=== PATIENT | male | born 1970 | race Caucasian/White ===

== ENCOUNTER → 2022-05-15 09:39 | Outpatient (BNVA) | payer OTHER, SELFPAY | PROVIDERS: Visit Provider Orthopaedic Surgery | DX: M17.12 Unilateral primary osteoarthritis, left knee (principal) | CPT/HCPCS: 73560; 73565 ==

== ENCOUNTER 2022-05-23 16:46 | Outpatient (CLI) | payer OTHER, SELFPAY ==
--- NOTE | 2022-05-23 17:00 | CT_ITS ---
WS: [id number] CT LEFT knee, noncontrast HISTORY: pre op planning TECHNIQUE: Protocol for [facility] total knee replacement has been obtained. This includes axial imaging th rough the LEFT hip, LEFT knee and LEFT ankle. DLP: 1031.47 mGy.cm COMPARISON: 05/15/2022 Pelvis: No destructive bone lesions. No significant narrowing of the hip joints. No soft tissue abnor malities. LEFT knee: Mild tricompartment joint space narrowing and osteophytic changes from arthritis. Small wilson prapatellar joint effusion. LEFT ankle: Normal joint spaces and soft tissues. CT/CT knee LT [facility] IMPRESSION: CT imaging provided for [facility] robotic total knee replacement.
== END 2022-05-23 16:47 | disposition home or self-care (01) ==
PROVIDERS: Visit Provider Orthopaedic Surgery
DX: Z01.818 Encounter for other preprocedural examination (principal); M17.12 Unilateral primary osteoarthritis, left knee
CPT/HCPCS: 73700

== ENCOUNTER 2022-06-04 09:08 | Observation (INO) | payer OTHER, SELFPAY ==
[2022-05-25 08:55] VITALS: BMI 36.6
[2022-05-25 09:52] LABS: Anion Gap 13.3 (5-19); Blood Urea Nitrogen 10 mg/dL (6-20); Calcium 9.2 mg/dL (8.5-10.5); Carbon Dioxide 27 mmol/L (22-29); Chloride 104 mmol/L (98-107); Glomerular Filtration Rate 118.4 mL/min (90-130); Glucose 104 mg/dL (65-115); Osmolality Calculated 289 mOsm/kg (285-295); Potassium 4.3 mmol/L (3.5-5.1); Sodium 140 mmol/L (136-145)
--- NOTE | 2022-05-25 14:14 | ANES.PREANE2 ---
Pre-Anesthetic Assessment Height/Weight: Height 1.8 m Weight 119.295 kg Operation Date: 06/04/22 07:00 Proposed Procedures p [left total knee makoplasty/ 66484, M17.12(Left) - Jose Duque MD Familial anesthetic complications: none Was Beta Bright taken within 24 hours: N/A Was Clonidine taken within 24 hours: N/A Social No alcohol and No tobacco Exam alert, oriented x 3, clear to auscultation bilaterally and regular rate & rhythm Airway Submandibular: within normal limits Cervical ROM: within normal limits Mallampati: Class II Dentition: full CV/HEM Hypertension Metabolic Hyperlipidemia and Morbid Obesity [facility] [place] Osteoarthritis/DJD Anesthetic Plan ASA status: 3 Anesthesia: Regional (specify below) (SAB with adductor blk) Medications/Allergies Home Medications Medication Instructions Recorded Confirmed Last Taken Type atorvastatin 10 mg tablet 10 mg PO DAILY 05/15/22 05/25/22 Unknown History lisinopril 10 mg tablet 40 mg PO DAILY 05/15/22 05/25/22 Unknown History Allergies Allergy/AdvReac Type Severity Reaction Status Date / Time No Known Allergies Allergy Verified 05/15/22 09:32 PENDING SALE TO [facility] Anesthesia Social History (Updated 05/15/22 @ 09:35 by Jono Ulrich LPN) Smoking and tobacco status: never smoked Alcohol intake: never Data Anesthesia 05/25/22 09:23 BMP 05/25/22 09:23 Sodium 140 Potassium 4.3 Chloride 104 Carbon Dioxide 27 BUN 10 Creatinine 0.7 Glucose 104 Calcium 9.2 Cardiac Studies: No Data to Display
[2022-06-04] VITALS (17 sets, daily range): BP systolic 109–150; BP diastolic 59–82; PULSE 72–88; RESP 16–18; TEMP 36.4–36.8; O2SAT 95–100
[2022-06-04 06:25] LABS: Basophils # 0.1 10^3/uL (0.0-0.1); Basophils % 0.6 %; Hematocrit 46.9 % (42.0-52.0); Hemoglobin 15.2 g/dL (11.7-16.6); Lymphocytes # 2.1 10^3/uL (0.8-4.8); Lymphocytes % 23.4 %; Mean Corpuscular HGB Conc 32.4 g/dL (30.0-36.0); Mean Corpuscular Hemoglobin 28.1 pg (28.0-34.0); Mean Corpuscular Volume 86.9 fl (80-94); Mean Platelet Volume 9.9 fL (7.4-10.4); Monocytes # 0.8 10^3/uL (0.2-0.9); Monocytes % 8.8 %; Neutrophils # 5.86 10^3/uL (1.8-7.7); Nucleated Red Blood Cells % 0 %; Platelet Count 250 10^3/cmm (130-400); Red Cell Distribution Width 13.4 % (12.1-15.1); White Blood Count 8.8 10^3/uL (4.0-10.0)
[2022-06-04] MEDS: gabapentin 300 mg Capsule PO ×2 (06:26→17:38)
[2022-06-04] MEDS: acetaminophen 500 mg Tablet 1000 MG PO ×3 (06:26→23:24)
[2022-06-04] MEDS: CELEcoxib 200 mg Capsule 400 MG PO (06:26)
[2022-06-04] MEDS: sodium chloride 0.9% 1,000 ML 30 ML IV (06:28)
--- NOTE | 2022-06-04 06:54 | P.HP_ITS ---
Same Day Surgery H&P Indication for Procedure/HPI DATE OF PROCEDURE: June 04, 2022 CHIEF COMPLAINT/INDICATIONFOR SURGICAL PROCEDURE: Left knee pain here for left total knee arthroplasty PREOP DIAGNOSIS: Osteoarthritis left knee PLANNED PROCEDURE: Operation Date: 06/04/22 07:00 Proposed Procedures p [left total knee makoplasty/ 21742, M17.12(Left) - Jose Duque MD 52 year old male patient here for evaluation of his left knee pain. Patient states that he has had progressively worsening pain for the last month. He is un sure of any specific injury. He reports that he has been unable to work due to the pain. He states that his pain is in the medial aspect of the knee. He has pain with weight bearing and walking. He has pain with pivoting and twisting. He denies any catching or locking sensations. He reports that he has been using crutches due to the pain.? He states that he tried return back to work but after only a few days the pain became quite severe he has been taking tramadol for pain/discomfort. Medications/Allergies* Home Medications Medication Instructions Recorded Confirmed Type atorvastatin 10 mg tablet 10 mg PO DAILY 05/15/22 06/04/22 History lisinopril 10 mg tablet 40 mg PO DAILY 05/15/22 06/04/22 History Allergies/Adverse Reactions Allergy/AdvReac Type Severity Reaction Status Date / Time No Known Allergies Allergy Verified 05/15/22 09:32 Current Medications: Generic Name Dose Route Start Last Admin Trade Name Freq PRN Reason Stop Dose Admin Sodium Chloride 1,000 mls @ 30 mls/hr 06/04/22 06:00 06/04/22 06:28 Sodium Chloride 0.9% IV 06/05/22 05:59 30 mls/hr .Q24H SHON Administration Pertinent History/Comorbid Conditions* Social History Smoking and tobacco status: never smoked Alcohol intake: never Pertinent Exam Findings alert, oriented x 3, clear to auscultation bilaterally, regular rate & rhythm and operative site marked KNEE left Slight standing varus of both knees perhaps worse on the right than the left Tender over medial joint line Motion from 15 degrees short of full extension to 90 degrees of flexion Moderate effusion Patellofemoral crepitance throughout motion Cruciate and collateral ligaments stable. MOTOR: Strong quadriceps hamstrings tibialis anterior and extensor houses longus strength SENSATION: Intact to light touch Recommendations Surgery/Procedure today Coding Level of Care Code Acute Code for Chg Fwd
[2022-06-04] MEDS: ceFAZolin 2,000 MG in sodium chloride 0.9% (plus) 50 ML 100 MG IV ×3 (07:00→23:25)
[2022-06-04] MEDS: tranexamic acid 1,000 mg/10mL SDV 1000 MG IV (07:20)
[2022-06-04] MEDS: EPINEPHrine 1 mg/mL INJ XX (07:52)
[2022-06-04] MEDS: ketorolac 30 mg/mL INJ XX (07:53)
[2022-06-04] MEDS: tranexamic acid 1,000 mg/10mL SDV 1000 MG XX (07:56)
[2022-06-04] MEDS: sodium chloride 0.9% 100 mL Bag XX (07:58)
--- NOTE | 2022-06-04 08:10 | P.ANESUD_ITS ---
Pre-Anesthetic Update Pre-Anesthetic Assessment: Date of Surgery/Procedure: 06/04/22 Preop Maria Luisa gnosis: Osteoarthritis left knee Proposed Procedure: Operation Date: 06/04/22 07:00 Proposed Procedures p [left total knee makoplasty/ 25630, M17.12(Left) - Jose Duque MD Any changes to Pre-Anesthetic Assessment?: No Last Intake: Intake Last Liquid Date 06/03/22 Last Liquid Time 19:00 Last Solid Date 06/03/22 Last Solid Time 19:00 Labs Last 48hrs: Short CBC 06/04/22 Range/Units 06:15 WBC 8.8 (4.0-10.0) 10^3/ uL Hgb 15.2 (11.7-16.6) g/dL Hct 46.9 (42.0-52.0) % MCV 86.9 (80-94) fl Plt Count 250 (130-400) 10^3/c mm Neut % (Auto) 67.0 % Neut # (Auto) 5.86 (1.8-7.7) 10^3/u L Vitals: Oxygen Delivery Me thod 06/04/22 06:12 Exam: Pre-Anes Outpt Exam: alert, oriented x 3, clear to auscultation bilaterally and regular rate & rhythm Cardiac Studies: No Data to Display Anesthesia Procedures Nerve Block: Nerve Block 1: Main Anesthesia: spinal anesthesia block Time Out Performed: Yes Consent: requested by attending/covering physician, from patient, risks and benefits reviewed and patient agrees to proceed Nerve block location: adductor canal (left) Anesthesia monitors applied: pulse oximetry, EKG, BP cuff and oxygen Nerve block position: supine Anesthetic Used: ropivicaine 0.5% Amount of anesthesia used (mL): 20 Ultrasound used to: recognize landmarks Nerve Stimulator Used?: No Interscalene/Femoral BLK: 4 stimuplex 21 g needle used for position and inplane approach Injection: neg aspiration of heme Patient Tolerated Procedure: well Complications: none
--- NOTE | 2022-06-04 08:51 | PM.OP ---
Operative Report Date of procedure: June 04, 2022 Pre-op diagnosis: Preop Diagnosis Osteoarthritis left knee Post-op diagnosis: same Post-op diagnosis: Same Post-op findings: Same Procedure done: Left total knee arthroplasty Implants: Boyce Triathalon total knee arthroplasty components were used includin) Size 6 triathalon cruciate retaining femoral component 2) Size 6 Tritanium tibial component 3) Size 6/9 mm thickness CS tibial bearing insert Pathology: none sent Surgeon: Jose Duque Hot Metal Crane Operator: Avery Gao Hot Metal Crane Operator: The nurse practitioner the nurse practitioner assisted with critical portions of the case including positioning, draping, exposure, component implantation, closure and dressing application and is present through the entirety of the case. Anesthesia: Nerve Block (Spinal, adductor canal block) Estimated blood loss (mL): 100 Findings: The patient had a 2 x 2 centimeter eburnated exposed subchondral bone over the medial femoral condyle and a 1 x 2 cm area of eburnation over the far lateral femoral condyle. He had eburnated bone throughout the superior central trochlea. Condition: stable Disposition: PACU Brief History: Peña is a 52-year-old male with severe right knee pain and MRI revealing a meniscal root tear, chondral defects of the medial femoral condyle. He had moderate to severe degenerative change of the contralateral knee. With the degenerative change he was not thought to be a candidate for root repair. Is unable to tolerate any significant time on his feet due to severe pain. total knee arthroplasty was chosen to improve pain and function Procedure: The patient was taken to the operating room. Patient was given 1 g of tranexamic acid and 2 g of Ancef. The above anesthesia provided by the anesthesia service. A timeout was performed. The patient was prepped and draped in the usual fashion with the lower extremity exposed. A anterior incision was made, midline, from a point proximal to the patella to the distal tibial tubercle. The knee was entered through a medial parapatellar approach. The patella could be displaced laterally and the knee flexed. The patellar fat pad was resected to provide better visibility. Retractors were placed medially and laterally adjacent to the tibial plateau. At a point approximately 8 cm above the patella, 2 small incisions were made with a scalpel blade and 2 long threaded pins were placed into the anterior medial femur engaging both cortices. The femoral arrays were placed over these pins and secured. At a point 8 cm distal to the tibial tubercle. 2 shorter bicortical threaded pins were placed across the anterior medial tibia and the tibial arrays placed. A checkpoint was made just proximal and medial to the medial femoral condyle and just medial to the tibial plateau. Small osteotomes were placed in the joint in both flexion and extension to determine ligamentous laxity. The patient had 3 degrees of hyperextension. The femoral component was externally rotated 1 degree and lowered to 1 mm to balance the knee and create additional tightness in extension. The [email or web address] robot was then introduced to the field and the femur and tibia cut in accordance with our plan. he [employer] Fastseal was then used to provide hemostasis, particularly about the posterior capsule. A trial with the above components provided excellent stability and full range of motion. The femur was then prepared for the femoral pegs of the component in the tibia for the tibial component. The femur and tibia were then press-fit into place. An osteotome was used to remove the lateral 8 mm of the patella to minimize chances of later impingement. A neurectomy was accomplished circumferentially about the patella with electrocautery and lateral osteophytes removed. Surfaces were cleaned with a gentamicin solution. The femur and tibia were then press-fit into place. The posterior capsule and collateral ligaments were then injected with a solution of 100 mL of 0.2% ropivacaine, 1 mL of a 1:1000 epinephrine solution, 30 mg of Toradol, and 1 g of tranexamic acid. Final polyethylene component was then snapped into place into the tibia. The extensor retinaculum was closed with a running 1 Stratafix interrupted 1 Ethibond. The subcutaneous tissues were closed with 2-0 Vicryl and the skin was closed with a running 4-0 Stratafix. The wound was covered with a Dermabond Prineo dressing. It was covered with 4xrs and a compressive Tubigauze was applied. The patient was taken to recovery room in stable condition.
--- NOTE | 2022-06-04 09:03 | XR_ITS ---
WS: [id number] Exam: XR knee LT 1-2V [id number] Date/Time of Exam: 06/04/2022 9:14 AM Reason For Exam: Left Total knee arthroplasty Comparison 05/15/2022. A total knee replacement is noted and appears to be in excellent position. Postoperative changes in t he adjacent soft tissues. XR/XR knee LT 1-2V 92159 IMPRESSION: 1. Total knee replacement in satisfactory position.
--- NOTE | 2022-06-04 09:32 | SUR.PHASEI ---
0913 SCDs connected to SCD pump. Pump working
[2022-06-04] MEDS: sodium chloride 0.9% 1,000 ML 100 ML IV ×2 (11:02→19:50)
[2022-06-04] MEDS: lisinopril 10 mg Tablet 40 MG PO (11:03)
[2022-06-04] MEDS: oxyCODONE 5 mg IR Tab/Cap PO ×4 (11:03→23:24)
[2022-06-04] MEDS: sennosides-docusate Tablet 2 TAB PO ×2 (11:03→17:38)
[2022-06-04] MEDS: aspirin 325 mg EC Tablet PO (11:03)
[2022-06-04] MEDS: atorvastatin 40 mg Tablet 20 MG PO (11:04)
--- NOTE | 2022-06-04 15:40 | ANE.PACU2 ---
Inpatient post-anesthesia follow up: Airway intact: Yes Vital signs: Temperature 98.0 F Pulse Rate 87 Respiratory Rate 16 Blood Pressure 114/75 Pulse Oximetry 96 Oxygen Delivery Me thod Room Air Oxygen Flow Rate 6 Fraction of Inspir ed Oxygen Hydration adequate: Yes Nausea and vomiting: No Pain level: 1 Mental status: Baseline
[2022-06-04] MEDS: CELEcoxib 200 mg Capsule PO (17:38)
[2022-06-05 03:56] VITALS: RESP 16
[2022-06-05] MEDS: oxyCODONE 5 mg IR Tab/Cap PO ×2 (03:56→08:36)
[2022-06-05] MEDS: sodium chloride 0.9% 1,000 ML 100 ML IV (03:56)
[2022-06-05 04:00] VITALS: BP 112/70; PULSE 79; RESP 16; TEMP 36.8; O2SAT 96
[2022-06-05] MEDS: CELEcoxib 200 mg Capsule PO (05:42)
[2022-06-05] MEDS: acetaminophen 500 mg Tablet 1000 MG PO (05:42)
[2022-06-05] MEDS: ceFAZolin 2,000 MG in sodium chloride 0.9% (plus) 50 ML 100 MG IV (05:42)
--- NOTE | 2022-06-05 07:17 | P.DS_ITS ---
Discharge Providers Date of Admission: 06/04/22 09:08 Date of Discharge: June 05, 2022 Attending Provider at Admission: Jose Cedeno MD Attending Provider at Discharge: Jose Cedeno MD Primary Care Provider: RICKIE Harry Reason for Visit Reason for Visit: unilateral primary ostoarthritis left knee Hospital Course Hospital Course The patient tolerated surgery well. They remained hemodynamically stable. They was begun on aspirin and foot pumps for DVT prophylaxis. The patient was mobilized with therapy beginning the day of surgery and by the first postoperative day independent with the walker. As the pain was adequately controlled and they were fully mobile they were discharged home. Physical Exam Narrative: On the day of discharge the knee incision was clean. They had no drainage. There is minimal swelling in the thigh and knee and the calf. No distal neurovascular deficits were noted Discharge Data Studies Completed and Pending Completed Studies During Hospitalization Category Date Time Status XR knee LT 1-2V 92252 Routine Exams 06/04/22 09:03 Completed Radiology Impressions Knee X-Ray 06/04/22 09:03 IMPRESSION: 1. Total knee replacement in satisfactory position. Laboratory Results WBC 8.8 10^3/uL (4.0-10.0) 06/04/22 06:15 RBC 5.40 10^6/uL (4.1-5.3) H 06/04/22 06:15 Hgb 13.0 g/dL (11.7-16.6) 06/05/22 05:20 Hct 46.9 % (42.0-52.0) 06/04/22 06:15 MCV 86.9 fl (80-94) 06/04/22 06:15 MCH 28.1 pg (28.0-34.0) 06/04/22 06:15 MCHC 32.4 g/dL (30.0-36.0) 06/04/22 06:15 RDW 13.4 % (12.1-15.1) 06/04/22 06:15 Plt Count 250 10^3/cmm (130-400) 06/04/22 06:15 MPV 9.9 fL (7.4-10.4) 06/04/22 06:15 Neut % (Auto) 67.0 % 06/04/22 06:15 Lymph % (Auto) 23.4 % 06/04/22 06:15 [place] % (Auto) 8.8 % 06/04/22 06:15 Eos % (Auto) 0.0 % 06/04/22 06:15 Baso % (Auto) 0.6 % 06/04/22 06:15 Neut # (Auto) 5.86 10^3/uL (1.8-7.7) 06/04/22 06:15 Lymph # (Auto) 2.1 10^3/uL (0.8-4.8) 06/04/22 06:15 [place] # (Auto) 0.8 10^3/uL (0.2-0.9) 06/04/22 06:15 Eos # (Auto) 0.0 10^3/uL (0.0-0.8) 06/04/22 06:15 Baso # (Auto) 0.1 10^3/uL (0.0-0.1) 06/04/22 06:15 Nucleated RBC % (auto) 0 % 06/04/22 06:15 Nucleated RBCs # 0.0 /100WBC 06/04/22 06:15 Sodium 140 mmol/L (136-145) 05/25/22 09:23 Potassium 4.3 mmol/L (3.5-5.1) 05/25/22 09:23 Chloride 104 mmol/L (98-107) 05/25/22 09:23 Carbon Dioxide 27 mmol/L (22-29) 05/25/22 09:23 Anion Gap 13.3 (5-19) 05/25/22 09:23 BUN 10 mg/dL (6-20) 05/25/22 09:23 Creatinine 0.7 mg/dL (0.7-1.2) 05/25/22 09:23 GFR Calculation 118.4 mL/min (90-130) 05/25/22 09:23 Glucose 104 mg/dL (65-115) 05/25/22 09:23 Calculated Osmolality 289 mOsm/kg (285-295) 05/25/22 09:23 Calcium 9.2 mg/dL (8.5-10.5) 05/25/22 09:23 Vitals Last Vital Signs Temp 98.2 F 06/05/22 04:00 Pulse 79 06/05/22 04:00 Resp 16 06/05/22 04:00 BP 112/70 06/05/22 04:00 Pulse Ox 96 06/05/22 04:00 O2 Del Method 06/04/22 15:16 O2 Flow Rate 6 06/04/22 09:11 Discharge Plan Discharge Patient Disposition: Home Condition: Stable Prescriptions: New oxycodone 5 mg Tablet 5 mg PO Q4H PRN (Reason: Moderate Pain) 7 Days Qty: 40 0RF acetaminophen 500 mg Tablet 1,000 mg PO Q8H 14 Days Qty: 84 0RF celecoxib 200 mg Capsule 200 mg PO Q12H 14 Days Qty: 28 0RF aspirin 325 mg Tablet,Delayed Release (Dr/Ec) 325 mg PO DAILY 3 Days Qty: 30 0RF gabapentin 300 mg Capsule 300 mg PO BID 7 Days Qty: 14 0RF Continued lisinopril 10 mg tablet 40 mg PO DAILY atorvastatin 10 mg tablet 10 mg PO DAILY Discharge Orders: Discharge Order (Routine); Ordered 06/05/22 Ordered By: Jose Cedeno Other Ambulatory Orders: DME: Sj (Order) Location: None Selected Ordered By: Jose Cedeno Referrals: Avery Gao FNP [Physician Ux Interaction Designer] - 06/08/22 8:30 am Discharge Diet: Advance as tolerated Discharge Activity: Limit activity as instructed Patient Instructions: Opioid Safety Activity Restrictions/Additional Instructions: Okay to shower Keep Tubigauze sleeve in place for swelling. Okay to remove for hygiene. Apply FirstIce up to 20 min/hr for pain and swelling Take Celebrex twice a day for the next 15 days for pain , discontinue other anti-inflammatories Take Neurontin twice a day for 7 days. Take Tylenol 500mg (2 tabs) as needed 3 times a day for mild pain take oxycodone for breakthrough pain. Exercises per physical therapy. May weight-bear as tolerated on total knee arthroplasty IF HAVE ANY PROBLEMS OR QUESTIONS CALL [facility] AND ASK TO HAVE DR. CEDENO PAGEEmre. Discharge Attestations Time Spent in Discharge Care*: other Quality Metrics Clinical Quality Measures [ No reported AMI, CVA or VTE this stay] Coding Level of Care Code Acute Code for Chg Fwd
[2022-06-05 08:00] VITALS: BP 143/88; PULSE 80; RESP 16; O2SAT 97
[2022-06-05 08:36] VITALS: RESP 16; O2SAT 97
[2022-06-05] MEDS: aspirin 325 mg EC Tablet PO (10:11)
[2022-06-05] MEDS: lisinopril 10 mg Tablet 40 MG PO (10:11)
[2022-06-05] MEDS: gabapentin 300 mg Capsule PO (10:11)
[2022-06-05] MEDS: sennosides-docusate Tablet 2 TAB PO (10:11)
[2022-06-05] MEDS: atorvastatin 40 mg Tablet 20 MG PO (10:11)
[2022-06-05 10:16] VITALS: RESP 16; O2SAT 97
--- NOTE | 2022-06-05 10:54 | PC.NURSE ---
Discussed discharge, new medications, continued medications and changed medications. Discussed follow up appointments and answered all questions. Patient and spouse verbalized understanding
== END 2022-06-05 10:16 | disposition home or self-care (01) ==
LOC: MEDSURG 09:08
PROVIDERS: Anesthesiology; Admitting Provider Orthopaedic Surgery; PCP Nurse Practitioner Family; Visit Provider Orthopaedic Surgery
PROC: 8E0Y0CZ Robotic Assisted Procedure of Lower Extremity, Open Approach (ICD-10-PCS; CPT 27447; principal; 2022-06-04 07:00)
DX: M17.12 Unilateral primary osteoarthritis, left knee (principal); I10 Essential (primary) hypertension; E78.5 Hyperlipidemia, unspecified; E66.01 Morbid (severe) obesity due to excess calories; Z68.36 Body mass index [BMI] 36.0-36.9, adult
CPT/HCPCS: 27447; 36415; 73560; 80048; 85018; 85025; 97110; 97116; 97161; 97165; C1776; G0378; J0171; J0690; J1580; J1885; J2704; J2795; J7030

== ENCOUNTER → 2022-06-08 08:44 | Outpatient (BNVA) | payer OTHER, SELFPAY | PROVIDERS: PCP Nurse Practitioner Family; Visit Provider Nurse Practitioner Family | DX: Z96.652 Presence of left artificial knee joint (principal) | CPT/HCPCS: 73560; 73565 ==

== ENCOUNTER → 2022-07-06 09:14 | Outpatient (BNVA) | payer OTHER, SELFPAY | PROVIDERS: PCP Nurse Practitioner Family; Visit Provider Nurse Practitioner Family | DX: Z96.652 Presence of left artificial knee joint (principal) | CPT/HCPCS: 73560; 73565 ==

== ENCOUNTER → 2022-08-31 08:07 | Outpatient (BNVA) | payer OTHER, SELFPAY | PROVIDERS: PCP Nurse Practitioner Family; Visit Provider Nurse Practitioner Family | DX: Z96.652 Presence of left artificial knee joint (principal) | CPT/HCPCS: 73560; 73565 ==

== ENCOUNTER → 2023-02-27 15:14 | Outpatient (BNVA) | payer OTHER, SELFPAY | PROVIDERS: PCP Nurse Practitioner Family; Visit Provider Nurse Practitioner | DX: Z96.652 Presence of left artificial knee joint (principal); M17.12 Unilateral primary osteoarthritis, left knee | CPT/HCPCS: 73560; 73565 ==